=== PATIENT | female | born 1970 | race Caucasian/White ===

== ENCOUNTER 2020-09-08 10:12 | Day surgery (SDC) | payer MEDICAID ==
[~2020-09-08 10:12] MED LIST: Metoclopramide 10 MG/2 ML SDV IV PRN; Sodium Chloride 0.9% 1,000 ML IV SCH
[2020-09-08] MEDS ORDERED: Propofol 200 MG/20 ML SDV ONE (12:55)
--- NOTE | 2020-09-08 18:23 | OR ---
DATE OF OPERATION: 09/08/2020 SURGEON: Jann Scott MD PREOPERATIVE DIAGNOSIS: Screening colonoscopy. POSTOPERATIVE DIAGNOSIS: Screening colonoscopy. PROCEDURE: Colonoscopy. ANESTHESIA: MAC. ESTIMATED BLOOD LOSS: None. COMPLICATIONS: None. INDICATION FOR THE PROCEDURE: The patient is a 50-year-old female here today for her first screening colonoscopy. She denies any family history of colon cancer. She denies any change in bowel habits. DESCRIPTION OF PROCEDURE: Informed consent was obtained from the patient. The patient was taken to the operating room, placed on table in left lateral decubitus position. Monitored anesthesia care was administered. Colonoscope was then advanced through the anus directed towards the cecum. Cecum was reached and identified by appendiceal orifice. The colonoscope was then slowly withdrawn. No masses. No polyps. No areas of ischemia or inflammation identified. Rectum was also otherwise unremarkable. Colonoscope was then withdrawn. FINDINGS: Normal colon. RECOMMENDATIONS: Would recommend repeat screening colonoscopy in 10 years. KRISTIE/BHUPINDER /[id number]
== END 2020-09-08 14:05 | disposition home or self-care (01) ==
LOC: LB.SDS 10:12
PROVIDERS: ATTEND Surgery
DX: Z12.11 Encounter for screening for malignant neoplasm of colon (principal)
CPT/HCPCS: J2704; J7030